=== PATIENT | male | born 1965 | race Caucasian/White ===

== ENCOUNTER 2022-12-05 09:55 | Emergency (ER) | payer SELFPAY ==
[2022-12-05 10:00] VITALS: PULSE 76; RESP 16; TEMP 36.6; O2SAT 100; BMI 30.6
--- NOTE | 2022-12-05 10:08 | XR_ITS ---
WS: [id number] XR shoulder RT min 2V* [id number] REASON FOR EXAM: injury FINDINGS: No comparison examination. Total reverse right shoulder arthroplasty. The prosthetic components are intact and in proper positio n and alignment. No fracture is identified. IMPRESSION: Right shoulder arthroplasty with no acute abnormality.
--- NOTE | 2022-12-05 10:09 | W.ED.EXTPRO ---
HPI - Extremity Problem General: Chief complaint: Extremity Injury, Upper Stated complaint: right arm injury Time Seen by Provider: 12/05/22 10:03 Source: patient Mode of arrival: ambulatory Limitations: no limitations History of Present Illness: 57-year-old male states he is carrying a 5 gallon bucket he states that he was swinging at [facility] unit but behind and felt a loud pop and heard a loud pop in his shoulder he had extensive shoulder repair in the past he states that now he is severe pain over his bicep he feels like his biceps contracted. Denies any other injuries it is worse with movement improved with rest Associated symptoms: Deny chest pain, fever(s) or rash Review of Systems Const: Denies: fever(s) or chills ENMT: Denies: throat pain or dental pain Card: Denies: chest pain Resp: Denies: dyspnea GI: Denies: abdominal pain, nausea, vomiting or diarrhea Musc: Reports: extremity pain; Denies: neck pain or back pain Skin/Breast: Denies: rash Neuro: Denies: headache(s) Physical Exam Const: COMMON NORMALS: no acute distress, patient oriented x3 and healthy appearing HENMT: COMMON NORMALS: normocephalic and atraumatic HEAD & SCALP: normocephalic and atraumatic Eye: COMMON NORMALS: conjunctivae normal CONJUNCTIVA: Yes conjunctivae normal Neck/C-Spine: COMMON NORMALS: full ROM and supple Chest: COMMONS NORMALS: normal inspection of the chest Resp: COMMON NORMALS: normal respiratory effort Cardio: COMMON NORMALS: regular rate, regular rhythm and No murmurs present (Cardio) RATE: regular rate RHYTHM: regular rhythm GI: INSPECTION: Yes normal to inspection Extremity: NARRATIVE EXTREMITY EXAM: Tenderness along the shoulder where his biceps tendon inserts his biceps is balled up and tender over his bicep as well likely a biceps tendon rupture Neuro: COMMON NORMALS: patient oriented x3, moves all extremities and no focal motor deficits Psych: COMMON NORMALS: mental status grossly normal, Normal thought process present and cooperative THOUGHT PROCESS: Normal thought process present Skin: COMMON NORMALS: no rashes or lesions noted and no wounds GENERAL SKIN EXAM: no rashes or lesions noted Course Vital Signs: Vital signs: Vital Signs Temperature 97.8 F 12/05/22 10:00 Pulse Rate 76 12/05/22 10:00 Respiratory Rate 16 12/05/22 10:00 Pulse Oximetry 100 12/05/22 10:00 Oxygen Delivery Me thod Room Air 12/05/22 10:00 MDM - Extremity (Nontraumatic) Medical Decision Making Patient presents here with right arm pain likely a bicep tendon rupture x-ray shows no acute abnormalities we will place him in a sling pain meds given orthopedic follow-up. Medical Records I reviewed the patient's medical records. Lab Data I reviewed the patient's lab results. Discharge Plan Discharge Patient Disposition: Home Clinical Impression: Biceps tendon rupture, proximal Condition: Stable Prescriptions: New hydrocodone-acetaminophen 5-325 mg tablet 1 tab PO Q6H PRN (Reason: pain) Qty: 14 0RF No Action Motrin IB 200 mg Capsule 800 mg PO Q6H PRN (Reason: Pain) Discharge Orders: Discharge ED (Routine); Ordered 12/05/22 Ordered By: Paulino Vega Referrals: Kathrine Rosa MD [Physician] - 1-3 days Discharge Diet: Advance as tolerated Discharge Activity: Increase activity as tolerated Patient Instructions: Biceps Tendon Rupture, Opioid Safety Coding Level of Care Code ED Battery Installer for Phyliciag Regino
[2022-12-05] MEDS: HYDROcodone-acetaminophen 7.5-325 mg Tablet 1 TAB PO (10:25)
--- NOTE | 2022-12-05 10:44 | DCPLANNER ---
Addendum entered by Juanita Dahl 12/06/22 12:17: architectural project manager received the following message from the ortho clinic regarding follow up appointment: I keep getting a busy tone when calling the number listed in chart. It is the same as his emergency contact and on the auth to discuss - his address is in [facility] so im not sure if he is even going to be following up here? I will hold on to this and try again later today. If he is going to be following up here, dr gallagher said we could get in with Cyril Chirinos Original Note: architectural project manager had message to schedule a follow up appointment for patient with ortho. architectural project manager sent patients information to the front office staff at ortho. Patients information will be printed and reviewed. Clinic will call patient with appointment information.
[2022-12-05 10:49] VITALS: BP 153/96; PULSE 73; RESP 16; O2SAT 95
[2022-12-05 10:50] VITALS: BP 153/96; PULSE 73; RESP 16; O2SAT 95
== END 2022-12-05 10:51 | disposition home or self-care (01) ==
PROVIDERS: Emergency Provider Emergency Medicine
DX: S46.211A Strain of muscle, fascia and tendon of other parts of biceps, right arm, initial encounter (principal); X50.9XXA Other and unspecified overexertion or strenuous movements or postures, initial encounter
CPT/HCPCS: 73030; 99283